=== PATIENT | male | born 1975 | race Caucasian/White ===

== ENCOUNTER 2020-07-14 11:00 | Emergency (ER) | payer MEDICAID ==
[~2020-07-14] VITALS: Ht 193 cm; Wt 99.8 kg
[2020-07-14 11:00] VITALS: BP 152/78
--- NOTE | 2020-07-14 11:05 | NUR ---
R ELBOW AND ARM BLISTER/BURN AFTER CRYOTHERAPY. PATIENT A/OX4, BREATHING EVEN AND UNLABORED, NO SOB NOTED. NEEDS ATTENDED. KEPT COMFORTABLE.
[2020-07-14] MEDS ORDERED: SILVER SULFADIAZINE CREAM 25 GM TUBE ONE (11:29)
[2020-07-14] MEDS ORDERED: HYDR-3976 PO (11:29)
[2020-07-14] MEDS ORDERED: HYDROCODONE/APAP 5/325MG TABLET PO ONE (11:30)
[2020-07-14] MEDS ORDERED: SILVER SULFADIAZINE CREAM 25 GM TUBE TP ONE (11:30)
--- NOTE | 2020-07-14 11:56 | NUR ---
RIGHT ARM WRAPPED WITH XEROFORM AFTER APPLYING SILVADENE. THEN WRAPPED WITH KERLIX. Patient discharged to home in stable condition. Written and verbal after care instructions given. Patient verbalizes understanding of instruction.
--- NOTE | 2020-07-14 12:28 | NUR ---
Puneet dueñas in [facility] - 07/14/20 at 1228 by DAFNE Patient discharged to home in stable condition. Written and verbal after care instructions given. Patient verbalizes understanding of instruction.
== END 2020-07-14 12:28 | disposition home or self-care (01) ==
LOC: ER 11:00
DX: T22.222A Burn of second degree of left elbow, initial encounter (principal); T23.272A Burn of second degree of left wrist, initial encounter; X08.8XXA Exposure to other specified smoke, fire and flames, initial encounter; Y93.89 Activity, other specified; Y92.89 Other specified places as the place of occurrence of the external cause; Y99.8 Other external cause status